=== PATIENT | female | born 2000 ===

== ENCOUNTER 2022-05-17 23:35 | Emergency (ER) | payer SELFPAY ==
--- NOTE | ~2022-05-17 | XR_ITS ---
Clinical Indication: Chest pain PA and lateral views of the chest: Comparison: None Findings: The lungs are clear, without evidence of focal consolidation or pleural effusion. Cardiome diastinal silhouette is within normal limits. Bones and soft tissues are unremarkable. Impression: Normal chest. Reviewed, dictated and finalized at location . [employer] WELLNESS PROGRAM COORDINATOR Impression: Normal chest.
[2022-05-17 23:38] VITALS: BP 152/91; PULSE 144; RESP 20; TEMP 36.6; O2SAT 100
--- NOTE | 2022-05-17 23:41 | ECG_ITS ---
Measurements Intervals [place] Rate: 141 P: 56 MD: 124 QRS: 53 QRSD: 88 T: 52 QT: 328 QTc: 504 Interpretive Statements SINUS TACHYCARDIA MINIMAL Q WAVES- INFERIOR LEADS ABNORMAL ECG NO PREVIOUS ECG AVAILABLE FOR COMPARISON Electronically Signed On 05-18-2022 8:16:24 [employer]IFT PRODUCTION SUPERVISOR by Jonathan De Leon D.O.
[2022-05-18] VITALS (9 sets, daily range): BP systolic 137–146; BP diastolic 91–98; PULSE 110–127; RESP 15–26; O2SAT 100
[2022-05-18] MEDS: SODIUM CHLORIDE 0.9% IV 1,000 ML 999 ML IV CONT (03:52)
[2022-05-18 03:56] LABS: Basophils Absolute Auto 0.1 K/mm3 (0.0-0.1); Basophils Percent Auto 0.4 % (0.2-1.2); Eosinophils Percent Auto 0.1 % (0-4.4); Hematocrit 37.6 % (37.0-47.0); Hemoglobin 12.2 g/dL (12.0-15.0); Immature Granulocyte Absolute 0.06 K/mm3 (0.00-0.031); Immature Granulocyte Percent A 0.4 % (0-0.5); Lymphocytes Absolute Auto 2.96 K/mm3 (0.9-3.2); Lymphocytes Percent Auto 18.1 % (18.3-44.2); Mean Corpuscular HGB Conc 32.4 g/dl (32-36); Mean Corpuscular Hemoglobin 25.5 pg (26-34); Mean Corpuscular Volume 78.7 fl (80-100); Mean Platelet Volume 9.2 fl (7.4-10.4); Monocytes Absolute Auto 0.5 K/mm3 (0.1-0.6); Monocytes Percent Auto 3.2 % (2.6-8.5); Neutrophils Absolute Auto 12.7 K/mm3 (1.3-6.7); Neutrophils Percent Auto 77.8 % (45.5-73.1); Platelet Count Result 453 k/mm3 (150-375); Red Blood Count 4.78 M/mm3 (4.2-5.4); Red Cell Distribution Width 14.2 % (11.5-14.5); White Blood Count 16.4 K/mm3 (4.5-10.0)
[2022-05-18 04:11] LABS: Anion Gap 8 mmol/L (8-16); Blood Urea Nitrogen 7 mg/dL (7-17); Calcium 8.9 mg/dL (8.4-10.2); Carbon Dioxide 28 mmol/L (22-30); Chloride 105 mmol/L (98-107); Estimated CRCL calculation 134 ml/min; Estimated Glomerular Filt Rate > 60; Glucose 129 mg/dL (65-110); Potassium 3.8 mmol/L (3.4-5.0); Sodium 141 mmol/L (137-145)
[2022-05-18 04:23] LABS: Troponin I < 0.012 ng/mL (0.000-0.034)
--- NOTE | 2022-05-18 05:40 | ED.SOB ---
HPI - SOB/Dyspnea General Chief Complaint: Shortness of Breath/Dyspnea Stated Complaint: sob, feels like heart is racing Time Seen by Provider: 05/18/22 03:14 History of Present Illness HPI Narrative: Patient is a 22-year-old female who presents ER with what she believes was a panic attack. Patient reports she has history of anxiety and has had panic attacks in the past. She reports today she is feeling particularly stressed because she was working a double shift at work and was taking on more patients and she was comfortable caring for her. She also reports she has been lacking sleep and eating poorly because of the anniversary of the of her mother and brother. She has been thinking about them more lately and its been making her emotional. Patient began getting more nervous and started having racing of her heart and difficulty breathing. She cannot calm herself down. Symptoms officially went away when she fell asleep while waiting to be seen in the ER. She did not take any medication for it. She reports her mother and brother both had significant cardiac disease and her brother at age 34 from a heart attack. She does not see a PCP. Related Data Allergies Allergy/AdvReac Type Severity Reaction Status Date / Time No Known Allergies Allergy Verified 05/18/22 03:55 Review of Systems Constitutional: Constitutional: Denies chills, Denies fatigue and Denies fever(s) ENT: Denies nasal congestion and Denies sore throat Cardiovascular: Cardiovascular: Denies chest pain, Reports rapid heart rate and Denies radiating jaw, neck or arm pain Respiratory: Respiratory: Denies cough, Reports dyspnea and Denies wheezing Gastrointestinal: Gastrointestinal: Denies abdominal pain, Denies nausea and Denies vomiting Psychiatric: Psychiatric: Reports anxiety, Denies depression, Denies homicidal ideation and Denies suicidal ideation PMFSH Past Medical History Medical History (Updated 05/18/22 @ 05:53 by Delroy Minaya MD) Anxiety Surgical History Surgical History (Updated 05/18/22 @ 05:53 by Dleroy Minaya MD) No pertinent past surgical history Social History Social History (Updated 05/18/22 @ 05:53 by Delroy Minaya MD) Smoking status: Never smoker Exam Narrative: GENERAL: Well-appearing, well-nourished, and in no acute distress. HEAD: Normocephalic, atraumatic. EYES: PERRL and EOMI. ENT:Mucous membranes moist. CHEST: Clear to auscultation. No respiratory distress. HEART: Tachycardic and regular. Normal peripheral pulses. EXTREMITIES: Normal range of motion. No edema. NEURO: Alert and oriented x3. PSYCH: Normal mood and affect. Course Course Emergency Course: Patient resting comfortably. Feels much improved after some IV fluid. Her heart rate is 103 bpm. Patient has no infectious symptoms including cough/congestion or urinary symptoms. White count is elevated but seems to be nonspecific. May just be acute phase reactant to which she experienced this evening. Discussed negative cardiac enzymes as well as normal renal function. Patient family comfortable with discharge home. Discussed following up with the PCP for long-term care given family history of cardiac disease and early . Patient verbalized understanding of this. Vital Signs Vital signs: Vital Signs Temperature 97.9 F 05/17/22 23:38 Pulse Rate 144 H 05/17/22 23:38 Respiratory Rate 20 05/17/22 23:38 Blood Pressure 152/91 H 05/17/22 23:38 Pulse Oximetry 100 05/17/22 23:38 Oxygen Delivery Room Air 05/17/22 23:38 Temperature 97.9 F 05/17/22 23:38 Pulse Rate 113 H 05/18/22 05:20 Respiratory Rate 25 H 05/18/22 05:20 Blood Pressure 137/91 H 05/18/22 04:01 Pulse Oximetry 100 05/18/22 03:53 Oxygen Delivery Room Air 05/18/22 03:53 MDM - SOB/Dyspnea Lab Data 05/18/22 03:50 05/18/22 03:50 Labs: Lab Results 05/18/22 05/18/22 Range/Units 03:50 03:50 W
== END 2022-05-18 06:10 | disposition home or self-care (01) ==
PROVIDERS: Emergency Provider Emergency Medicine; PCP Family Medicine
DX: F41.0 Panic disorder [episodic paroxysmal anxiety] (principal); R00.2 Palpitations
CPT/HCPCS: 36415; 71046; 80048; 84484; 85025; 93005; 96360; 96361; 99284; J7030